=== PATIENT | male | born 1985 | race Hispanic/Latino ===

== ENCOUNTER 2025-05-11 00:44 | Emergency (ER) | payer OTHER, SELFPAY ==
[2025-05-11 00:44] VITALS: BP 132/83; PULSE 78; RESP 18; TEMP 36.4; O2SAT 99; BMI 34.5
[2025-05-11] MEDS: Lidocaine 1% (20 ml mdv) 20 ML Vial INFILT (00:53)
--- NOTE | 2025-05-11 00:59 | EX.ED.GENINJ ---
HPI History of Present Illness Chief Complaint: Laceration Narrative Narrative: Patient was seen and examined after presenting to ED for workplace injury in which patient ended up getting a laceration to his left fifth digit when he was picking up a metal sheet unknown last tetanus. [facility] Medical History GERD (gastroesophageal reflux disease) Allergy/AdvReac Type Severity Reaction Status Date / Time No Known Allergies Allergy Verified 05/11/25 00:48 Social History Smoking Status: Never smoker ROS ROS ED ROS Narrative Pertinent Positives: Laceration injury to left fifth digit Pertinent Negatives: Numbness tingling inability move finger The remainder of review of systems negative unless otherwise stated in the HPI above. Systems reviewed including constitutional, psychiatric, cardiovascular, respiratory, integument, HENT, gastrointestinal. EXAM Physical Exam Narrative Exam Narrative: Afebrile hemodynamically stable does not appear toxic or in distress normocephalic and atraumatic he has approximately a 2 to 2-1/2 cm laceration involving the left fifth digit at the PIP and down the medial aspect of that finger more proximally but otherwise intact MSPs intact motion completely no tendon injury Const Vital Signs: 05/11/25 00:44 05/11/25 02:48 Temperature 97.6 F L 98 F Temperature Source Oral Pulse Rate 78 85 Respiratory Rate 18 16 Blood Pressure 132/83 H 127/80 H Blood Pressure Mean 99 95 Pulse Ox 99 99 Oxygen Delivery Method Room Air MDM MDM MDM Narrative Medical decision making narrative: Nursing notes, triage notes, available previous documentation, and vital signs were reviewed. Any discrepancies noted were addressed. Differential Diagnoses: Simple laceration Interventions: Updated tetanus Procedure: Laceration Repair Confirmed Correct: Patient, procedure, side, site Consent: Patient, Verbal Description Length: 2.5 cm Location: Left fifth digit volar aspect and medial aspect Shape: Curvilinear Depth: Superficial Anesthesia: 3 mL Preparation: Sterile field Irrigation: Copious, pressure, 100 mL Skin Closure: 6 superficial sutures 5-0 Non-Absorbable Technique: Simple interrupted Complexity: Simple Post-procedure Examination: Normal circulation, motor, sensation. Bleeding Controlled. Procedure Complications: None Patient Tolerated: Well Total Time: 15 minutes Previous Documentation Reviewed: None available or applicable at this time. ED Course: Patient presenting with laceration left fifth digit was a workplace injury there is no evidence of foreign body he had his tetanus updated and the laceration was repaired. 0250: Patient tolerated procedure well has 6 sutures in the digit return precautions follow-up recommendations provided patient stable for discharge This note was made utilizing voice recognition software. All attempts were made to correct spelling or other errors prior to note completion. However, due to the fast-paced nature of emergency medicine, some errors may still be present. Discharge Plan Triage Chief Complaint: Laceration ED Provider: Corie Foster Dx/Rx/DC Orders Clinical Impression: Laceration of finger of left hand, Work related injury Instructions: ED Hand Laceration- All Closures Primary Care Provider: Care Physician,No Primary Referrals: Care Physician,No Primary [Primary Care Provider, Medical] Activity Restrictions/Additional Instructions: You have 6 stitches that you can have removed in 7 days you can come back here for it or follow-up with your primary care doctor. If you start noticing redness or pus draining from the site please return as you may need antibiotics Print Language: Icelandic Disposition Disposition: Home, Self Care
[2025-05-11 02:48] VITALS: BP 127/80; PULSE 85; RESP 16; TEMP 36.6; O2SAT 99
== END 2025-05-11 03:07 | disposition home or self-care (01) ==
PROVIDERS: Emergency Provider Specialist/Technologist Athletic Trainer; Visit Provider Specialist/Technologist Athletic Trainer
DX: S61.217A Laceration without foreign body of left little finger without damage to nail, initial encounter (principal); W26.8XXA Contact with other sharp object(s), not elsewhere classified, initial encounter; Y93.89 Activity, other specified; Y99.0 Civilian activity done for income or pay; Z23 Encounter for immunization
CPT/HCPCS: 12001; 90471; 90715; 99284

== ENCOUNTER 2025-05-18 07:16 | Emergency (ER) | payer OTHER, SELFPAY ==
[2025-05-18 07:16] VITALS: BP 131/79; PULSE 86; RESP 16; TEMP 36.5; O2SAT 97; BMI 32.8
--- NOTE | 2025-05-18 07:20 | EX.ED.DYSGE1 ---
HPI History of Present Illness Chief Complaint: Suture Remv PFSH PFS Medical History GERD (gastroesophageal reflux disease) Allergy/AdvReac Type Severity Reaction Status Date / Time No Known Allergies Allergy Verified 05/18/25 07:17 Social History Smoking Status: Never smoker EXAM Physical Exam Const Vital Signs: 05/18/25 07:16 Temperature 97.7 F L Temperature Source Oral Pulse Rate 86 Respiratory Rate 16 Blood Pressure 131/79 H Blood Pressure Mean 96 Pulse Ox 97 Oxygen Delivery Method Room Air MDM MDM MDM Narrative Medical decision making narrative: HISTORY OF PRESENT ILLNESS: Chief complaint: Suture removal 39-year-old male presents with suture removal. Notes sutures were placed 7 days ago the left fifth digit REVIEW OF SYSTEMS: Pertinent positives: Suture removal Pertinent negatives: None PHYSICAL EXAM: Nursing triage notes reviewed, Vital signs reviewed Extremities: Intact flexion of flexor digitorum superficialis and profundus tendons Neuro: Intact 5/5 strength with ok sign (median), intact finger abduction (ulnar) intact wrist extension (radial n). Intact sensation in the radial, ulnar, and median nerve distributions. Skin: Well-healed linear laceration noted to the volar medial aspect of the left fifth digit. No purulence. No drainage. No redness. No warmth. No foreign bodies noted. MEDICAL DECISION MAKING: Chief Complaint: please see HPI External records reviewed: Reviewed prior ED note. Noted 650 nonabsorbable sutures placed in the left fifth digit along the volar and medial aspect MDM Narrative: Patient was initially hemodynamically stable, afebrile and nontoxic-appearing. Exam with well-healed wound to the left fifth digit. Area was cleansed. 6 sutures were removed without issue. Return to work precautions given. The patient and/or family, caregivers express understanding. The patient and/or family, caregivers agrees with the plan. Shared decision making: I will have a discussion with the patient and or visitors regarding risk/benefits of further testing or admission. They will be made aware of of the risk/benefits inherent in this decision they will be given the opportunity to voice understanding. Total critical care time today provided was at least 0 minutes. This excludes separately billable procedures. Critical care time (if documented) is secondary to the patient having high probability of clinically significant/life threatening deterioration in the patient's condition which required my urgent intervention. Impression: 1. Encounter for suture removal 2. History of hand laceration Dispo: Discharge home This note was generated with Glyde dictation software. It may contain incorrect words, spelling, and punctuation that were not noted in review of the chart prior to signing. Discharge Plan Triage Chief Complaint: Suture Remv ED Provider: Felice Flynn Dx/Rx/DC Orders Clinical Impression: Visit for suture removal Instructions: Sutr or Stap Removal Stand Alone Forms: ED Work / School Excuse Primary Care Provider: Care Physician,No Primary Referrals: Uvaldo Jacobs MD [Med Staff - Active Staff, Family Practice] Activity Restrictions/Additional Instructions: Thank you for trusting us with your care today! Please return to the emergency department if your symptoms change or worsen. Please follow with your primary care physician if needed for further outpatient evaluation and management. Print Language: Persian Disposition Disposition: Home, Self Care
== END 2025-05-18 07:49 | disposition home or self-care (01) ==
PROVIDERS: Emergency Provider Emergency Medicine; Visit Provider Emergency Medicine
DX: Z48.02 Encounter for removal of sutures (principal)
CPT/HCPCS: 99282